=== PATIENT | male | born 1970 | race Two or more races ===

== ENCOUNTER 2019-07-28 09:58 | Emergency (ER) | payer SELFPAY ==
[2019-07-28] MEDS ORDERED: 0.9 % SODIUM CHLORIDE 1,000 ML IV ONE ×2 (10:20→13:52)
[2019-07-28] MEDS ORDERED: POTASS CHLOR 10 mEq/100mL IVPB 10 MEQ/100 ML ML IV ONE (10:40)
[2019-07-28] MEDS: [UNRECOGNIZED DRUG - OTHER] IV ONE ×2 (10:40→11:45)
[2019-07-28 10:57] LABS: BASOPHILS % 0.9 % (0.0-1.5); NEUTROPHILS # 6.3 # k/uL (1.4-7.7)
[2019-07-28 10:58] LABS: SEGMENTED NEUTROPHILS % 66 % (39-79)
[2019-07-28] MEDS ORDERED: Lidocaine 1% 5ml 10 MG/ML VIAL IJ ONE (11:29)
[2019-07-28] MEDS ORDERED: ONDANSETRON HCL/PF 4 MG/ 2ML VIAL IVP ONE (11:29)
[2019-07-28] MEDS ORDERED: POTASSIUM CHLORIDE 20 MEQ TABLET.ER PO ONE (11:29)
--- NOTE | 2019-07-28 11:35 | ED Physician Documentation ---
General Adult - HISTORIAN Historian: patient - HPI Chief Complaint: General Adult Onset: days ago (10) Further Comments: yes (49 year old male patient presents with complaints of intermittent abdominal pain, polyuria and polydipsea. Patient is traveling to from [facility] to [place]. Patient reports intermittent vomiting for the past 10 days when eating high fat foods. Reports using tums for epigastric pain "which helps for a while". States he has been drinking large amounts of coke and sprite. Patient denies any fever, diarrhea, chills or SOB. Does not take any daily medications. Hx: appendectomy.) - ROS CONST: weakness, weight loss (patient reports 20 pound weight loss). denies: fever, sweating, recent illness EYES/ENT: none CVS/RESP: none GI/: abdominal pain, vomiting, nausea. denies: problems urinating, diarrhea, black stools MS/SKIN/LYMPH: none NEURO/PSYCH: denies: headache, fainting, dizziness, tingling, numbness, difficulty walking, difficulty with speech, anxiety, depression, other - PAST HX Past History: none Other History: none Surgeries/Procedures: other (appendectomy) Allergies/Adverse Reactions: Allergies Allergy/AdvReac Type Severity Reaction Status Date / Time No Known Allergies Allergy Verified 07/28/19 10:42 Home Medications: Ambulatory Orders Medication Instructions Recorded NK 07/28/19 - SOCIAL HX Smoking History: non-smoker - FAMILY HX Family History: No - VITAL SIGNS Vital Signs: Vital Signs Temp Pulse Resp BP Pulse Ox 95 H 99 07/28/19 10:54 07/28/19 10:54 - REVIEWED ASSESSMENTS Nursing Assessment Reviewed: Yes Vitals Reviewed: Yes Progress - Progress Progress: Initial Anion Gap 24; beta hydroxybutyrate is an send out. Will defer to accepting facility. Patient will likely need DKA treatment; cannot keep insulin drip at [facility]. [address] Jha to clarify pancrease images on CT; patient with elevated Lipase. Blood sugar down to 364 - treated with 5U IV insulin bolus and additional 1L NS given 1400 Call to [facility] for transfer for higher level of care. [address] Artis - patient accepted for admission. Orders to hold insulin drip. - EKG/XRAY/CT EKG: rhythm (Rate 99, 2mm ST elevation in inferior leads. ) ED Results Lab/Radiology - Lab Results Lab Results: Lab Results 07/28/19 10:20 WBC 10.10 K/ul K/ul (4.00-12.00) RBC 5.37 M/ul H M/ul (3.90-5.20) Hgb 16.9 g/dL g/dL (12.0-18.0) Hct 51.2 % % (37.0-53.0) MCV 95.0 fl fl (80.0-100.0) MCH 31.4 pg pg (28.0-34.0) MCHC 33.0 g/dL g/dL (30.0-36.0) RDW 10.7 % L % (11.3-14.3) Plt Count 237 K/mm3 K/mm3 (130-400) Neut % (Auto) 61.3 % % (39.0-79.0) Lymph % (Auto) 17.8 % % (16.0-50.0) Porter % (Auto) 16.9 % H % (0.0-11.0) Eos % (Auto) 1.3 % % (0.0-6.8) Baso % (Auto) 0.9 % % (0.0-1.5) Neut # (Auto) 6.3 # k/uL # k/uL (1.4-7.7) Lymph # (Auto) 1.8 # k/uL # k/uL (0.6-4.0) Porter # (Auto) 1.7 # k/uL H # k/uL (0.0-0.9) Eos # (Auto) 0.1 # k/uL # k/uL (0.0-0.6) Baso # (Auto) 0.1 # k/uL # k/uL (0.0-0.5) Seg Neutrophils % 66 % % (39-79) Lymphocytes % 20 % % (16-50) Monocytes % 14 % H % (0-11) Plt Morphology Comment Normal (NORMAL) RBC Morph Comment Normal (NORMAL) - Radiology Radiology Impressions: PA AND LATERAL CHEST HISTORY: Epigastric pain COMPARISON: None PA and Lateral Chest dated July 28, 2019 demonstrates a normal cardiomediastinal silhouette. Pulmonary vascularity is normal. Lungs are clear. IMPRESSION: NO ACTIVE DISEASE. Electronically signed by: Dr. Delmy Chapa - Orders Orders: ED Orders Category Date Time Status Arterial Blood Gas 1T Care 07/28/19 10:20 Active Continuous EKG monitoring Q30M Care 07/28/19 10:24 Active Continuous Pulse Oximetry Q30M Care 07/28/19 10:[address] IV Lock 1T Care 07/28/19 10:24 Active CHEST 2VIEW [RAD] Stat Exams 07/28/19 10:24 Ordered AMYLASE Stat Lab 07/28/19 10:20 Received CBC/PLATELET/DIFF Stat Lab 07/28/19 10:20 Completed CMP Stat Lab 07/28/19 10:20 Received INFLUENZA A&B Stat Lab 07/28/19 10:20 Received LIPASE Stat Lab 07/28/19 10:20 Received TROPONIN I Stat Lab 07/28/19 10:20 Received UA W/MICRO IF INDICATED Stat Lab 07/28/19 10:20 Received 0.9 % Sodium Chloride [Normal Saline] 1,000 ml Med 07/28/19 10:20 Discontinued IV .STK-MED Lidocaine 1% 5ml [Xylocaine] Med 07/28/19 11:29 Discontinued 50 mg IJ NOW ONE Ondansetron HCl/Pf [Zofran] Med 07/28/19 11:29 Discontinued 4 mg IVP NOW ONE POTASS CHLOR 10 mEq/100mL IVPB [KCL 10 mEq/100 mL IVPB] Med 07/28/19 10:40 Discontinued 20 meq IV NOW ONE POTASS CHLOR 10 mEq/100mL IVPB [KCL 10 mEq/100 mL IVPB] Med 07/28/19 10:35 Discontinued 20 meq in 200 ml IV .STK-MED Potassium Chloride [Klor-Con M20] Med 07/28/19 11:29 Discontinued 40 meq PO NOW ONE EKG WITH COMPARISON Stat Ther 07/28/19 10:24 Ordered General Adult Physical Exam - PHYSICAL EXAM GENERAL APPEARANCE: mild distress EENT: eye inspection normal, DINA RESPIRATORY: no resp distress, chest non-tender, breath sounds normal CVS: reg rate & rhythm, heart sounds normal, equal pulses, no murmur, no gallop, PMI nml, no JVD, no friction rub, 24 ABDOMEN: soft, no organomegaly, no abdominal bruit, no distension, tenderness (epigastric), decreased BS BACK: normal inspection, no CVA tenderness SKIN: normal color, warm/dry, NR, INT, PAL, DR EXTREMITIES: non-tender, normal range of motion, no evidence of injury, no edema, J, 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 NEURO: oriented X3, CN's nml as tested, motor nml, sensation nml, mood/affect nml Discharge Clincal Impression: Elevated lipase DKA (diabetic ketoacidoses) Qualifiers: Diabetes mellitus type: other specified (including [place]) Diabetes mellitus complication detail: without coma Qualified Code(s): E13.10 - Other specified diabetes mellitus with ketoacidosis without coma Nausea & vomiting Qualifiers: Vomiting type: unspecified Vomiting Intractability: non-intractable Qualified Code(s): R11.2 - Nausea with vomiting, unspecified Referrals: Primary Doctor,No [Primary Care Provider] - 2 Days Condition: Fair Disposition: 02 XFER [facility] Decision to Admit: NO Decision Time: 14:20
--- NOTE | 2019-07-28 11:38 | Diagnostic Imaging Report ---
PATIENT MR#: [id number] PATIENT PATIENT NAME: NIKKI MCLEOD DATE OF : 1970 REFERRING PHYSICIAN: FLORIN MANLEY EXAM DATE: 07/28/2019 ACCESSION NUMBER: [id number] EXAM DESCRIPTION: CHEST 2VIEW PA AND LATERAL CHEST HISTORY: Epigastric pain COMPARISON: None PA and Lateral Chest dated July 28, 2019 demonstrates a normal cardiomediastinal silhouette. Pulmonary vascularity is normal. Lungs are clear. IMPRESSION: NO ACTIVE DISEASE. Read by: Dr. Delmy Chapa Transcribed by: Transcribed Date: Electronically signed by: Dr. Delmy Chapa Date signed: 07/28/2019 11:37:48 AM
[2019-07-28 12:03] LABS: eGFR (Non-African) > 60
--- NOTE | 2019-07-28 13:22 | Diagnostic Imaging Report ---
PATIENT MR#: [id number] PATIENT PATIENT NAME: NIKKI MCLEOD DATE OF : 1970 REFERRING PHYSICIAN: FLORIN MANLEY EXAM DATE: 07/28/2019 ACCESSION NUMBER: [id number] EXAM DESCRIPTION: CT ABD PELVIS W/ CON Examination: CT Abdomen/pelvis History: EPIGASTRIC PAIN WITH NAUSEA AND VOMITING Comparison exams: None available Technique: CT Abdomen/pelvis with IV protocol. Findings: Liver demonstrates diffuse low attenuation. No central lesion. Spleen, adrenals, pancreas, kidneys and gallbladder are without gross irregularity. No gallstone. No suspicious renal calcifications. Ureters are nondilated in their course through the abdomen and pelvis. No central calcifications. Bladder margin within normal limits. Abdominal aorta without aneurysm. Minimal peripheral atherosclerotic disease. Cardiac silhouette is not enlarg ed. No pericardial effusion. Few mildly prominence of small bowel without abnormal dilation. Stool within the large bowel limiting sensitivity. No mesenteric inflammatory changes or free fluid. Appendix not visualized. Osseous structures appropriate for age. Lung bases without infiltrate. No effusion. Impression: Few scattered mildly prominence of small bowel without abnormal dilation - gastroenteriti s. No acute upper abdominal organ inflammatory process. No gallstone. Fatty liver No suspicious renal calcifications or abnormal ureteric dilation. No lung base consolidation or effusion. Read by: Dr. Marty Jha Transcribed by: Transcribed Date: Electronically signed by: Dr. Marty Jha Date signed: 07/28/2019 1:21:48 PM
[2019-07-28] MEDS ORDERED: INSULIN REGULAR, HUMAN 100 UNIT/ML 10ML VIAL IV ONE (13:52)
[2019-07-28 14:02] LABS: APPEARANCE,URINE CLEAR (CLEAR); COLOR,URINE YELLOW (YELLOW); OCCULT BLOOD,URINE 1+ (NEGATIVE); UROBILINOGEN URINE 0.2 Eu (0.2-1.0)
[2019-07-28 15:32] LABS: eGFR (Non-African) > 60
[2019-07-28 17:48] VITALS: BP 128/78
== END 2019-07-28 15:45 | disposition short-term general hospital (02) ==
LOC: ED 09:58
DX: E13.10 Other specified diabetes mellitus with ketoacidosis without coma (principal); R11.2 Nausea with vomiting, unspecified; R74.8 Abnormal levels of other serum enzymes
CPT/HCPCS: 71046; 74177; 80048; 80053; 81002; 82150; 83690; 84132; 84484; 85025; 96374; 96375; 99283; 99284; A9270; J1815; J2405; J7030; Q9967; 36600; 82803; 87400; 93005; S1016